=== PATIENT | female | born 1980 | race Caucasian/White ===

== ENCOUNTER 2016-12-31 11:54 | Emergency (ER) | payer OTHER | END 2016-12-31 12:55 | disposition home or self-care (01) | LOC: FER 11:54 | DX: J10.1 Influenza due to other identified influenza virus with other respiratory manifestations (principal); F17.210 Nicotine dependence, cigarettes, uncomplicated | CPT/HCPCS: 87450; 87804; 87899; 99283 ==

== ENCOUNTER 2021-09-10 11:59 | Emergency (ER) | payer OTHER ==
[~2021-09-10 11:59] MED LIST: K-DUR20 MEQ PO; ZPAK PO
[2021-09-10 13:09] LABS: BASOPHIL 0.3 % (0-2); EOSINOPHIL 1.4 % (0-5); HCT 40.2 % (37.0-47.0); HGB 13.1 g/dl (12.5-16.0); LYMPHOCYTE 20.8 % (15-48); MCHC 32.6 g/dL (32.0-36.0); MCV 79.8 fL (78.0-100.0); MONOCYTE 6.3 % (0-12); MPV 9.3 fL (6.0-9.5); NEUTROPHIL 70.9 % (41-80); NRBC 0; PLT 230 K/uL (150-400); RBC 5.04 M/uL (4.20-5.40); RDW 15.4 % (11.5-14.0); WBC 9.9 K/uL (4.0-10.5)
[2021-09-10 13:34] LABS: BILIRUBIN NEGATIVE (NEGATIVE); BLOOD NEGATIVE Ery/uL (NEGATIVE); CLARITY CLEAR (CLEAR); COLOR YELLOW (YELLOW); GLUCOSE (U) NORMAL (NORMAL); LEUKOCYTES NEGATIVE Leu/uL (NEGATIVE); NITRITE NEGATIVE (NEGATIVE); PROTEIN TRACE (LOW) mg/dL (NEGATIVE); UROBILINOGEN 0.2 mg/dL (0.2-1.0)
[2021-09-10 13:39] LABS: URINARY WBC RARE
[2021-09-10 13:40] LABS: BACTERIA TRACE
[2021-09-10 13:45] LABS: ALBUMIN 3.8 g/dL (3.4-5.0); BILIRUBIN - TOTAL 0.4 mg/dL (0.2-1.0); BUN/CREAT RATIO (CALC) 9.8 RATIO; CREATININE 0.61 mg/dL (0.51-0.95); GLOBULIN (CALCULATION) 4.5 g/dL; POTASSIUM 3.5 mmol/L (3.5-5.1); TOTAL PROTEIN 8.3 g/dL (6.4-8.2)
[2021-09-10] MEDS ORDERED: PRINIVIL20 MG PO (14:55)
== END 2021-09-10 15:14 | disposition home or self-care (01) ==
LOC: FER 11:59
PROVIDERS: Emergency Medicine
DX: I10 Essential (primary) hypertension (principal); F17.210 Nicotine dependence, cigarettes, uncomplicated
CPT/HCPCS: 36415; 71046; 80053; 81001; 85025; 93005

== ENCOUNTER 2022-02-01 14:29 | Emergency (ER) | payer OTHER ==
[~2022-02-01 14:29] MED LIST changes: +PRINIVIL20 MG PO
[2022-02-01] MEDS ORDERED: LISINOPRIL20 MG PO (16:43)
[2022-02-01] MEDS ORDERED: CLINDAMYCIN 15150 MG PO (16:43)
== END 2022-02-01 17:00 | disposition home or self-care (01) ==
LOC: FER 14:29
DX: K04.7 Periapical abscess without sinus (principal); I10 Essential (primary) hypertension; F17.210 Nicotine dependence, cigarettes, uncomplicated; Z79.899 Other long term (current) drug therapy
CPT/HCPCS: 99282; Q0163